=== PATIENT | female | born 1980 | race Caucasian/White ===

== ENCOUNTER 2024-04-30 18:48 | Emergency (ER) | payer BC ==
[~2024-04-30] VITALS: Ht 165.1 cm; Wt 82.0 kg
[2024-04-30 18:54] VITALS: BP 147/99; PULSE 86; RESP 16; TEMP 98.2; O2SAT 100
[2024-04-30] MEDS: IBUPROFEN 600MG TABLET PO ONE (19:51)
[2024-04-30] MEDS: TETANUS, DIPHTHERIA, PERTUSSIS VAC/PF 0.5ML (>10YR OLD) IM ONE (20:03)
== END 2024-04-30 21:22 | disposition home or self-care (01) ==
LOC: ER 19:58
DX: S20.219A Contusion of unspecified front wall of thorax, initial encounter (principal); S60.812A Abrasion of left wrist, initial encounter; M25.511 Pain in right shoulder; M25.531 Pain in right wrist; V49.59XA Passenger injured in collision with other motor vehicles in traffic accident, initial encounter; Y93.89 Activity, other specified; Y92.89 Other specified places as the place of occurrence of the external cause; Y99.8 Other external cause status
CPT/HCPCS: 71045; 73030; 73110; 90715; 90471; 99284; Z7610 ×2